=== PATIENT | male | born 1985 | race Caucasian/White ===

== ENCOUNTER 2016-07-23 11:36 | Emergency (ER) | payer OTHER ==
[~2016-07-23] VITALS: Ht 185.4 cm; Wt 74.8 kg
[~2016-07-23 11:36] MED LIST: AMPI500C11 PO; LEVE250T2 PO
[2016-07-23 12:37] VITALS: BP 137/74
== END 2016-07-23 12:43 | disposition home or self-care (01) ==
LOC: ER 11:38
DX: J02.0 Streptococcal pharyngitis (principal); E11.9 Type 2 diabetes mellitus without complications; G40.909 Epilepsy, unspecified, not intractable, without status epilepticus; F17.200 Nicotine dependence, unspecified, uncomplicated; Z59.0 Homelessness
CPT/HCPCS: 99283; A4606; Z7610